=== PATIENT | female | born 1950 | race Caucasian/White ===

== ENCOUNTER → 2017-09-28 | Outpatient (CLI) | payer OTHER | END | disposition home or self-care (01) | LOC: RAD 501 09:01 | DX: Z96.643 Presence of artificial hip joint, bilateral (principal) ==

== ENCOUNTER → 2018-10-25 | Outpatient (CLI) | payer OTHER | END | disposition home or self-care (01) | LOC: RAD 501 09:19 | DX: M25.551 Pain in right hip (principal); M25.552 Pain in left hip ==

== ENCOUNTER 2020-10-28 09:08 | Outpatient (CLI) | payer OTHER | END 2020-10-28 15:52 | disposition home or self-care (01) | LOC: RAD 09:08 | PROVIDERS: ATTEND Orthopaedic Surgery | DX: M25.552 Pain in left hip (principal); M25.551 Pain in right hip ==

== ENCOUNTER 2022-09-12 13:33 | Outpatient (CLI) | payer OTHER | END 2022-09-12 13:41 | disposition home or self-care (01) | LOC: RAD 13:33 | PROVIDERS: ATTEND Orthopaedic Surgery | DX: Z96.643 Presence of artificial hip joint, bilateral (principal) ==

== ENCOUNTER 2025-03-25 11:59 | Outpatient (CLI) | payer OTHER | END 2025-03-25 12:10 | disposition home or self-care (01) | LOC: RAD 11:59 | PROVIDERS: ATTEND Orthopaedic Surgery | DX: Z96.643 Presence of artificial hip joint, bilateral (principal); M17.0 Bilateral primary osteoarthritis of knee; M23.231 Derangement of other medial meniscus due to old tear or injury, right knee; M23.232 Derangement of other medial meniscus due to old tear or injury, left knee ==

== ENCOUNTER 2025-07-15 08:20 | Outpatient (CLI) | payer OTHER ==
[~2025-07-15] VITALS: Ht 160 cm; Wt 83.0 kg
[2025-07-15 09:27] LABS: BASO % 0.5 % (0.1-1.2); EOS # 0.22 (0.04-0.54); EOS % 3.3 % (0.7-7.0); LYMPH # 1.68 (1.18-3.74); LYMPH % 25.5 % (19.3-53.1); MEAN PLATELET VOLUME 10.50 fl (9.4-12.4); MONO # 0.46 (0.24-0.82); MONO % 7.0 % (4.7-12.5); NEUT # 4.18 (1.56-6.13); NEUT % 63.5 % (34.0-71.1); RED CELL DISTRIBUTION WIDTH 13.6 % (11.6-14.4)
[2025-07-15 09:44] LABS: URINE APPEARANCE Clear; URINE BILIRRUBIN Negative (NEGATIVE); URINE BLOOD Trace; URINE COLOR Yellow; URINE GLUCOSE Negative (NEGATIVE); URINE KETONE Negative (NEGATIVE); URINE LEUKOCYTE Trace; URINE NITRATE Negative; URINE PROTEIN Negative (NEGATIVE); URINE UROBILINOGEN 0.2 E.U./dl
[2025-07-15 09:48] LABS: URINE BACTERIA 16.8 uL (0.0-1933); URINE EPITHELIAL CELLS 3.8 uL (0.0-38.8); URINE RBC 7.6 uL (0.0-20.8); URINE WBC 19.6 uL (0.0-23.2)
[2025-07-15 09:54] LABS: URINE CAST 0.00 uL (0.0-1.40)
[2025-07-15 09:55] LABS: INR 0.94
[2025-07-15 10:07] LABS: COL EPI 93 SECONDS (82-175)
[2025-07-15 10:24] LABS: ALT/SGPT 26.0 U/L (12-78); AST/SGOT 21.0 U/L (15-37); BILIRUBIN TOTAL 0.48 mg/dL (0.3-1.2); BUN CREA RATIO 19.0 (7.0-25.0); CREATININE SERUM 0.86 mg/dL (0.55-1.02); GFR 64.68; GLOBULINA 3.6 G/DL (2.4-3.5); GLUCOSE FASTING 99.0 mg/dL (65-100); OSMOLALITY SERUM 282.0 MOSM/KG (275-295)
[2025-07-15 14:17] VITALS: BP 146/81
== END 2025-07-15 08:29 | disposition home or self-care (01) ==
LOC: LAB 08:20 → RAD 08:20
PROVIDERS: ATTEND Orthopaedic Surgery
DX: D64.9 Anemia, unspecified (principal); E88.89 Other specified metabolic disorders; D68.8 Other specified coagulation defects; N39.0 Urinary tract infection, site not specified; Z22.322 Carrier or suspected carrier of Methicillin resistant Staphylococcus aureus; I10 Essential (primary) hypertension; Z76.89 Persons encountering health services in other specified circumstances

== ENCOUNTER 2025-07-19 09:44 | Outpatient (CLI) | payer OTHER ==
[~2025-07-19 09:44] MED LIST: ATACAND4 MG PO; METFORMIN HCL500 MG; ROSUVASTATIN CAL5 MG PO; SYNTHROID50 MCG PO
== END 2025-07-19 09:50 | disposition home or self-care (01) ==
LOC: LAB 09:44
PROVIDERS: ATTEND Orthopaedic Surgery
DX: E87.6 Hypokalemia (principal)

== ENCOUNTER 2025-07-21 11:00 | Day surgery (SDC) | payer OTHER ==
[2025-07-18 09:42] VITALS: BP 146/81
[2025-07-21] MEDS ORDERED: CEFAZOLIN SODIUM 1,000 MG VIAL ONE (11:43)
[2025-07-21] MEDS ORDERED: BUPIVACAINE HCL/MPF 0.5% 30ML VIAL ONE (11:43)
[2025-07-21] MEDS ORDERED: LIDOCAINE HCL 1%/EPINEPHRINE 20ML VIAL IJ ONE (11:43)
[2025-07-21] MEDS ORDERED: EPINEPHRINE HCL/PF 1 MG/ML AMPUL ONE (13:26)
== END 2025-07-21 17:55 | disposition home or self-care (01) ==
LOC: CIR.AMB 11:00
PROVIDERS: ATTEND Orthopaedic Surgery
DX: M23.222 Derangement of posterior horn of medial meniscus due to old tear or injury, left knee (principal); M65.862 Other synovitis and tenosynovitis, left lower leg; M23.8X2 Other internal derangements of left knee